=== PATIENT | female | born 1955 | race Caucasian/White ===

== ENCOUNTER → 2017-06-28 17:22 | Outpatient (CLI) | payer BC ==
[2015-06-11 14:26] VITALS: BMI 21.8
[~2017-06-28 17:22] MED LIST: ADVIL200 MG PO; CLARITIN-D1 TAB.SR . PO; FORTICAL3.7 ML NS; OMEGA 3 FISH OI1 CAP PO
== END | disposition home or self-care (01) ==
LOC: D.MAMMO 14:00
DX: Z12.31 Encounter for screening mammogram for malignant neoplasm of breast (principal)

== ENCOUNTER 2019-02-15 09:00 | Outpatient (CLI) | payer BC ==
[2015-06-11 14:26] VITALS: BMI 21.8
== END 2019-02-15 10:00 | disposition home or self-care (01) ==
LOC: D.MAMMO 09:00
PROVIDERS: ATTEND Family Medicine
DX: Z12.31 Encounter for screening mammogram for malignant neoplasm of breast (principal)